=== PATIENT | female | born 1965 | race American Indian/Alaskan Native ===

== ENCOUNTER 2016-05-30 16:14 | Emergency (ER) | payer OTHER ==
--- NOTE | 2016-05-30 18:33 | Emergency Department Report ---
Chief Complaint: Vaginal Bleeding Stated Complaint: VAG BLEED X2 WEEKS Time Seen by Provider: 05/30/16 18:28 - HPI History of Present Illness: Voiding 11-year-old female comes in for vaginal bleeding since 05/15/2016. She reports that is worse in the last 3 days complains of lower pelvic pain and vaginal pain. She saw Dr. Bateman today and was told to come to the emergency room to be seen by . He has been using between 5 and 6 pads today since passing some clots she's been taking the Provera and ibuprofen without much relief. Complaining of dizziness as well. - Exam Vital Signs: Vital Signs 05/30/16 16:30 Temperature 98.4 F Pulse Rate 89 Respiratory 19 Rate Blood Pressure 173/94 O2 Sat by Pulse 100 Oximetry Physical Exam: He is alert and oriented she appears to be feeling pretty bad and tired. Cardiovascular S1-S2 regular rate and rhythm respiratory clear to auscultation bilaterally abdomen soft nontender bowel sounds throughout. MSE screening note: Focused history and physical exam performed. Due to findings the following was ordered: CBC BMP been ordered. As well as a urinalysis patient be evaluated in the main ER. ED Disposition for MSE Condition: Stable
[2016-05-30 19:07] LABS: Hematocrit 27.9 % (30.3-42.9); Hemoglobin 8.5 gm/dl (10.1-14.3); Mean Corpuscular HGB Conc 31 % (30-34); Red Blood Count 4.66 M/mm3 (3.65-5.03); White Blood Count 6.6 K/mm3 (4.5-11.0)
[2016-05-30 19:09] LABS: Mean Corpuscular Volume 60 fl (79-97)
[2016-05-30 19:10] LABS: Mean Corpuscular Hemoglobin 18 pg (28-32); Platelet Count 249 K/mm3 (140-440); Red Cell Distribution Width 25.2 % (13.2-15.2)
[2016-05-30 19:13] LABS: BUN/Creatinine Ratio 16.66; Blood Urea Nitrogen 10 mg/dL (7-17); Calcium 9.2 mg/dL (8.4-10.2); Carbon Dioxide 23 mmol/L (22-30); Chloride 104.6 mmol/L (98-107); Glucose 86 mg/dL (65-100); Potassium 3.7 mmol/L (3.6-5.0); Sodium 141 mmol/L (137-145)
[2016-05-30 19:19] LABS: Anion Gap 17 mmol/L
[2016-05-30 20:09] LABS: Bilirubin,Urine NEG (Negative); Blood,Urine LG (Negative); Ketones,Urine NEG (Negative); Leukocyte Esterase,Urine SM (Negative); Nitrite,Urine NEG (Negative); RBC,Urine > 182.0 /HPF (0.0-6.0); Urobilinogen,Urine < 2.0 mg/dL (<2.0)
[2016-05-31] MEDS ORDERED: MORPHINE IV ONE (01:44)
--- NOTE | 2016-05-31 01:46 | Emergency Department Report ---
HPI - General Chief Complaint: Vaginal Bleeding Time Seen by Provider: 05/30/16 18:28 - HPI HPI: This is a 51-year-old Afro-[place] female presents to the emergency department with complaint of lower abdominal and pelvic pain as well as vaginal bleeding. This is more of a chronic condition for this patient but it has been worse over the past 3 days. Her TAP DANCER is Dr. tanner but she went to [place] today and saw Dr. Bateman. She allegedly was told to come to the hospital to see Dr. tanner here, however, the patient has been here for 9-10 hours prior to getting back into the main emergency department. She has used 5-6 pads today. She is passing some clots. Patient was placed on Provera on the and has been taking that, as well some intermittent ibuprofen, without any relief. She denies any fever, nausea, vomiting, chest pain or shortness of breath. Patient does have known history of uterine fibroids. ED Past Medical Hx - Past Medical History Hx Hypertension: Yes Additional medical history: uterine fibroids. HIGH CHOLESTEROL - Surgical History Past Surgical History?: No - Social History Smoking Status: Never Smoker Substance Use Type: None - Medications Home Medications: Home Medications Medication Instructions Recorded Confirmed Last Taken Type HYDROcodone/APAP 5-325 [[place] 1 each PO Q6HR PRN #16 tablet 04/08/16 Unknown Rx 5/325] medroxyPROGESTERone ACETATE 10 mg PO QDAY #20 tablet 04/08/16 Unknown Rx [Provera] medroxyPROGESTERone ACETATE 10 mg PO QDAY #20 tablet 04/08/16 Unknown Rx [Provera] Ferrous Sulfate [Feosol] 325 mg PO QDAY #30 tablet 05/31/16 Unknown Rx oxyCODONE /ACETAMINOPHEN [Percocet 1 tab PO Q6HR PRN #14 tablet 05/31/16 Unknown Rx 5/325] ED Review of Systems ROS: Stated complaint: VAG BLEED X2 WEEKS Other details as noted in HPI Comment: All other systems reviewed and negative Constitutional: denies: chills, fever Eyes: denies: eye pain, eye discharge, vision change ENT: denies: ear pain, throat pain Respiratory: denies: cough, shortness of breath, wheezing Cardiovascular: denies: chest pain, palpitations Gastrointestinal: abdominal pain. denies: nausea, vomiting Genitourinary: other (vaginal bleeding). denies: dysuria, discharge Musculoskeletal: denies: arthralgia, myalgia Skin: denies: rash, lesions Neurological: denies: headache, weakness, paresthesias Physical Exam - Physical Exam Vital Signs: Vital Signs 05/30/16 16:30 Temperature 98.4 F Pulse Rate 89 Respiratory 19 Rate Blood Pressure 173/94 O2 Sat by Pulse 100 Oximetry Physical Exam: GENERAL: The patient is well-developed well-nourished. HEENT: Normocephalic. Atraumatic. Extraocular motions are intact. Patient has moist mucous membranes. Pupils equal reactive to light bilaterally. NECK: Supple. Trachea is midline. CHEST/LUNGS: Clear to auscultation. There is no respiratory distress noted. HEART/CARDIOVASCULAR: Regular. There is no tachycardia. There is no gallop rub or murmur. ABDOMEN: Abdomen is soft, nontender. Unable to reproduce patient's pelvic and/ or lower abdominal tenderness to palpation. No guarding rebound tenderness. Patient has normal bowel sounds. There is no abdominal distention. SKIN: There is no rash. There is no diaphoresis. NEURO: The patient is awake, alert, and oriented. The patient is cooperative. The patient has no focal neurologic deficits. The patient has normal speech. MUSCULOSKELETAL: There is no tenderness or deformity. There is no limitation range of motion. There is no evidence of acute injury. ED Course Vital Signs 05/30/16 16:30 Temperature 98.4 F Pulse Rate 89 Respiratory 19 Rate Blood Pressure 173/94 O2 Sat by Pulse 100 Oximetry - Consultations Consultation #1: I spoke with the patient's TAP DANCER, Dr. tanner, regarding the patient's history of fibroids and continued discomfort and vaginal bleeding. He agrees that based on the patient's vital signs, current hemoglobin, and history, that she appears safe for discharge home at this time. He will see her in the office the next few days. 05/31/16 03:36 ED Medical Decision Making - Lab Data Result diagrams: 05/30/16 18:44 05/30/16 18:44 - Medical Decision Making 51-year-old female presents to the emergency department with lower abdominal/ pelvic discomfort, vaginal bleeding. She does have a history of known fibroids and allegedly is due for a hysterectomy secondary to this. Seen by Dr. Bateman outpatient and sent in to see Dr. tanner. By the time the patient got to the emergency department and was seen in the main sec., her TAP DANCER was no longer here. Patient's labs show a anemia with a hemoglobin of 8.5 but it is not at the level that requires transfusion. Patient does not appear to have symptomatic anemia. Her main concern is her discomfort. She was given a single dose of pain medication and says that she is feeling greatly improved. Vital signs stable throughout her ED course including being afebrile. There is no tachycardia or hypoxia. Patient already has an appointment with her TAP DANCER on . She'll be discharged home with some pain medication. She has elevated blood pressure but but it is at a reasonable level and the patient will take her blood pressure medication which she returns home. She will return to the ER with any worsening of her symptoms or any acute distress. - Differential Diagnosis dysfunctional uterine bleeding, fibroids, malignancy, menorrhagia Critical Care Time: No Critical care attestation.: If time is entered above; I have spent that time in minutes in the direct care of this critically ill patient, excluding procedure time. ED Disposition Clinical Impression: Vaginal bleeding, Pelvic pain Fibroids Qualifiers: Uterine leiomyoma location: unspecified location Qualified Code(s): D25.9 - Leiomyoma of uterus, unspecified Menorrhagia Qualifiers: Menorrahagia type: with irregular cycle Qualified Code(s): N92.1 - Excessive and frequent menstruation with irregular cycle Hypertension Qualifiers: Hypertension type: essential hypertension Qualified Code(s): I10 - Essential ( primary) hypertension Disposition: DISCHARGED TO HOME OR SELFCARE Is pt being admited?: No Does the pt Need Aspirin: No Condition: Stable Instructions: Uterine Fibroids (ED), Menorrhagia (ED), Hypertension (ED) Additional Instructions: Please follow-up with your TAP DANCER in the next 1-2 days without fail. Return to the emergency department with any worsening of her symptoms, chest pain, shortness of breath, or any acute distress. You've been prescribed a medication that is sedating. Therefore this medication cannot be mixed with alcohol, or taken prior to driving, working, or being responsible for children. Prescriptions: Ferrous Sulfate [Feosol] 325 mg PO QDAY #30 tablet oxyCODONE /ACETAMINOPHEN [Percocet 5/325] 1 tab PO Q6HR PRN #14 tablet PRN Reason: Pain Referrals: PRIMARY CAREMD [Primary Care Provider] - 3-5 Days THOMAS HILL MD [Staff Physician] - 3-5 Days Time of Disposition: 03:17
[2016-05-31 03:43] VITALS: BP 160/82
== END 2016-05-31 03:44 | disposition home or self-care (01) ==
LOC: ED 16:14
DX: D25.9 Leiomyoma of uterus, unspecified (principal); N93.9 Abnormal uterine and vaginal bleeding, unspecified; R10.2 Pelvic and perineal pain; N92.1 Excessive and frequent menstruation with irregular cycle; I10 Essential (primary) hypertension; E78.00 Pure hypercholesterolemia, unspecified
CPT/HCPCS: 36415; 80048; 81001; 85027; 96374; 99283; J2270